=== PATIENT | male | born 1985 | race African-American/Black ===

== ENCOUNTER 2019-02-12 23:18 | Emergency (ER) | payer OTHER, MEDICAID ==
[~2019-02-12] VITALS: Ht 170.2 cm; Wt 71.2 kg
--- NOTE | 2019-02-13 00:50 | NUR ---
LILA FROM STREET AAOX4. NAD NOTED. AMBULATORY. CAME IN FOR SUICIDAL IDEATION PLANS TO OVERDOSE WITH PILLS/MEDICATION. PT REPORT FEELING DOWN, DEPRESSED AND HAVING PROBLEMS WITH HIS PARTNER. PT IS STRIPPED OFF HIS CLOTHINGS AND BELONGINGS AND KEPT IN THE UTILITY ROOM BY MD OFFICE. PT TO ER BED 12. AWAITING MD ANDERS
--- NOTE | 2019-02-13 00:50 | NUR ---
URINE CEOLLECTED AND SENT OT LAB
--- NOTE | 2019-02-13 00:55 | NUR ---
SECURITY CALLED TO BEDSIDE FOR WANDING
[2019-02-13 01:10] LABS: BASOPHILS % (AUTO) 0.5 % (0.0-2.0); EOSINOPHILS % (AUTO) 1.1 % (0.0-6.0); HEMATOCRIT 40 % (39-51); HEMOGLOBIN 13.7 g/dL (13.5-17.5); LYMPHOCYTES % (AUTO) 31.6 % (20.0-44.0); MEAN CORPUSCULAR HGB CONC 34 g/dl (31.0-36.0); MEAN CORPUSCULAR VOLUME 100 fL (80-96); MONOCYTES # (AUTO) 0.8 /CMM (0.1-1.30); MONOCYTES % (AUTO) 8.6 % (2.0-12.0); NEUTROPHILS # (AUTO) 5.6 /CMM (1.8-8.9); NEUTROPHILS % (AUTO) 58.2 % (43.0-81.0); PLATELET COUNT (AUTO) 277 /CMM (150-450); RED BLOOD CELL COUNT(AUTO) 3.99 MIL/uL (4.5-6.0); WHITE BLOOD COUNT (AUTO) 9.6 K/uL (4.3-11.0)
[2019-02-13 01:12] LABS: APPEARANCE,URINE Clear (CLEAR); BILIRUBIN,URINE Negative (NEGATIVE); BLOOD, URINE Negative Ery/uL (NEGATIVE); COLOR,URINE Yellow (YELLOW); KETONES,URINE Trace (NEGATIVE); LEUKOCYTE ESTERASE ,URINE Trace (NEGATIVE); NITRITE, URINE Negative (NEGATIVE); PROTEIN,URINE Trace mg/dl (NEGATIVE); UGLUCOSE Negative (NEGATIVE)
[2019-02-13 01:21] LABS: CALCIUM, SERUM 8.8 mg/dL (8.5-10.1); CREATININE 0.9 mg/dL (0.6-1.3); POTASSIUM 4.1 mmol/L (3.5-5.1)
[2019-02-13 01:33] LABS: ALBUMIN 3.5 g/dL (3.4-5.0); BILIRUBIN,DIRECT 0.1 mg/dL (0.0-0.2); BILIRUBIN,TOTAL 0.2 mg/dL (0.2-1.0); SALICYLATE 3.3 mg/dL (2.8-20.0); TOTAL PROTEIN, SERUM 7.2 g/dL (6.4-8.2)
[2019-02-13 01:53] LABS: BACTERIA,URINE Few /HPF (None Seen); SQUAMOUS EPITHELIAL CELL,UR Rare /HPF (None Seen); WBC,URINE 51-80 /HPF (0-3)
[2019-02-13 01:56] LABS: PHENYTOIN (DILANTIN) 0.5 ug/ml (10.0-20.0)
[2019-02-13] MEDS ORDERED: PHENYTOIN SODIUM IV 1,000 MG in IV NS 0.9% 100 ML IV ONE (02:30)
[2019-02-13] MEDS ORDERED: DIVALPROEX SODIUM 250 MG TABLET.DR PO ONE ×2 (02:30→02:34)
[2019-02-13] MEDS ORDERED: phenytoin SODIUM IV 250 MG/5 ML VIAL IV ONE (02:34)
--- NOTE | 2019-02-13 02:55 | NUR ---
ART STEWARD/STEWARDESS [employer]IL[employer] DINING CAR ON ROUTE TO ASSESS PATIENT.
--- NOTE | 2019-02-13 03:47 | NUR ---
ART, MANAGER OF ADMINISTRATION AT BEDSIDE
[2019-02-13 03:51] VITALS: BP 154/88
--- NOTE | 2019-02-13 05:01 | NUR ---
PT WAS AWAITING FOR ACCEPTANCE TO [facility]. PT REFUSED TO BE TRANSFER AND JUST WANTS TO WALK OUT. ART SPOKE WITH PT BUT STILL WANTS TO LEAVE. PT SIGNED AMA AND UNDERSTOOD THE RISK AND BENEFITS. AWARE.
== END 2019-02-13 05:06 | disposition left against medical advice (07) ==
LOC: ER 23:18
DX: R45.851 Suicidal ideations (principal); F19.10 Other psychoactive substance abuse, uncomplicated; R89.2 Abnormal level of other drugs, medicaments and biological substances in specimens from other organs, systems and tissues; G40.909 Epilepsy, unspecified, not intractable, without status epilepticus; F17.200 Nicotine dependence, unspecified, uncomplicated; Z59.0 Homelessness
CPT/HCPCS: 36415; 80048; 80076; 80164; 80185; 80305; 80307; 80329; 81001; 85025; 87086; 96365; 99284; G0480; J1165 ×2; J7030 ×2; 81000-TC